=== PATIENT | female | born 1940 | race Caucasian/White ===

== ENCOUNTER 2016-09-25 10:32 | Day surgery (SDC) | payer OTHER ==
[~2016-09-25] VITALS: Ht 160 cm; Wt 86.0 kg
[~2016-09-25 10:32] MED LIST: ALEVE220 MG PO; BENADRYL25 MG PO; CLOTRIMAZOLE-BE15 GM TP; CRESTOR10 MG PO; CYMBALTA20 MG PO; CYMBALTA60 MG PO; HUMALOG100 UNIT/1 SC; HYZAAR 100-11 TABLET PO; LANTUS 10100 UNITS/ SC; MIRALAX17 GM PO; PRINIVIL20 MG PO; PROTONIX40 MG PO
[2016-09-25 11:22] VITALS: BP 182/90
[2016-09-25 11:57] LABS: POINT-OF-CARE METER ID UU13113694; POINT-OF-CARE USER ID AHSRSCSLC11
[2016-09-25 15:35] VITALS: BP 178/80
[2016-09-25 15:47] LABS: POINT-OF-CARE METER ID UU13113694
[2016-09-25 16:10] VITALS: BP 160/68
[2016-09-25 16:30] VITALS: BP 160/60
== END 2016-09-25 16:45 | disposition home or self-care (01) ==
LOC: SDC 10:32
PROVIDERS: Ophthalmology
DX: H43.12 Vitreous hemorrhage, left eye (principal); N18.1 Chronic kidney disease, stage 1; E11.22 Type 2 diabetes mellitus with diabetic chronic kidney disease; I12.9 Hypertensive chronic kidney disease with stage 1 through stage 4 chronic kidney disease, or unspecified chronic kidney disease; E78.5 Hyperlipidemia, unspecified; I25.10 Atherosclerotic heart disease of native coronary artery without angina pectoris; I73.9 Peripheral vascular disease, unspecified; E66.01 Morbid (severe) obesity due to excess calories; Z87.891 Personal history of nicotine dependence; Z79.82 Long term (current) use of aspirin; Z79.4 Long term (current) use of insulin; Z68.34 Body mass index [BMI] 34.0-34.9, adult; Z83.3 Family history of diabetes mellitus; Z82.49 Family history of ischemic heart disease and other diseases of the circulatory system
CPT/HCPCS: 82948; J0690; J3300

== ENCOUNTER 2016-11-27 13:06 | Day surgery (SDC) | payer OTHER ==
[~2016-11-27] VITALS: Ht 160 cm; Wt 83.9 kg
[~2016-11-27 13:06] MED LIST changes: +COZAAR100 MG PO; -HYZAAR 100-11 TABLET PO
[2016-11-27 13:32] VITALS: BP 176/77
[2016-11-27 14:14] LABS: POINT-OF-CARE METER ID UU14174212
[2016-11-27 15:40] LABS: POINT-OF-CARE METER ID UU13113675
[2016-11-27 16:10] VITALS: BP 197/86
[2016-11-27 16:29] VITALS: BP 171/80
[2016-11-27 17:10] VITALS: BP 181/83
== END 2016-11-27 17:30 | disposition home or self-care (01) ==
LOC: SDC 13:06
PROVIDERS: Ophthalmology
DX: E11.3531 Type 2 diabetes mellitus with proliferative diabetic retinopathy with traction retinal detachment not involving the macula, right eye (principal); N18.1 Chronic kidney disease, stage 1; E11.22 Type 2 diabetes mellitus with diabetic chronic kidney disease; I12.9 Hypertensive chronic kidney disease with stage 1 through stage 4 chronic kidney disease, or unspecified chronic kidney disease; Z79.4 Long term (current) use of insulin; K21.9 Gastro-esophageal reflux disease without esophagitis; F03.90 Unspecified dementia, unspecified severity, without behavioral disturbance, psychotic disturbance, mood disturbance, and anxiety; E78.5 Hyperlipidemia, unspecified; I73.9 Peripheral vascular disease, unspecified; I25.10 Atherosclerotic heart disease of native coronary artery without angina pectoris; E66.01 Morbid (severe) obesity due to excess calories; Z68.35 Body mass index [BMI] 35.0-35.9, adult
CPT/HCPCS: 82948; J0690; J3300